=== PATIENT | male | born 1985 | race Caucasian/White ===

== ENCOUNTER 2023-01-29 15:18 | Emergency (ER) | payer SELFPAY ==
[~2023-01-29] VITALS: Ht 182.9 cm; Wt 86.4 kg
[2023-01-29 15:21] VITALS: TEMP 97.9
[2023-01-29 15:32] LABS: COVID AG,FIA SOURCE NASAL SWAB
[2023-01-29 16:13] LABS: SARS-COV2 (COVID) ANTIGEN,FIA Negative (Negative)
[2023-01-29 16:14] LABS: INFLUENZA TYPE A NEGATIVE FOR TYPE A (NEGATIVE); INFLUENZA TYPE B NEGATIVE FOR TYPE B (NEGATIVE)
[2023-01-29 18:40] VITALS: BP 124/61; PULSE 81; RESP 17
[2023-01-29] MEDS ORDERED: DOXY-354 PO (19:10)
[2023-01-29] MEDS ORDERED: GUAIFDM PO (19:10)
[2023-01-29] MEDS ORDERED: ACET-66 PO (19:10)
== END 2023-01-29 19:58 | disposition home or self-care (01) ==
LOC: EMS 15:21
DX: J18.9 Pneumonia, unspecified organism (principal); F17.210 Nicotine dependence, cigarettes, uncomplicated; F12.90 Cannabis use, unspecified, uncomplicated; Z20.822 Contact with and (suspected) exposure to COVID-19
CPT/HCPCS: 71045; 87804; 99284